=== PATIENT | male | born 1960 | race Caucasian/White ===

== ENCOUNTER 2016-10-10 15:12 | Inpatient (IN) | payer OTHER ==
[~2016-10-10] VITALS: Ht 170.2 cm; Wt 124.7 kg
--- NOTE | ~2016-10-10 | EKG ---
[address] [address] ELECTROCARDIOGRAM REPORT Name: DREAD HENDERSON Room #: 442- ADM IN M.R.#: [id number] Admission: 10/10/16 Attend Phys: Jefry Kong MD Discharge: Date of : 56 Report #: [id number] THIS REPORT FOR: //name// [facility] Test Date: 2016-10-10 Test Time: 17:50:10 Pat Name: DREAD HENDERSON Department: Room: 442 P Gender: M Child And Adolescent Psychiatrist: Danna ESCALONA : 1960 Requested By: Jefry Kong Order Number: [id number] MD: Akil Arango Measurements Intervals [place] Rate: 59 P: -24 ND: 141 QRS: 64 QRSD: 109 T: 98 QT: 423 QTc: 419 Interpretive Statements Sinus rhythm Low voltage, precordial leads Nonspecific T abnormalities, lateral leads No previous ECG available for comparison Electronically Signed On 10-11-2016 11:04:28 CDT by Akil Arango [email or web address] <ELECTRONICALLY SIGNED> By: Akil Arango MD 10/11/16 1104 1750 1750 Akil Arango MD /CAMMIE
--- NOTE | ~2016-10-10 | HC ---
[facility] [place] [address] CONSULTATION Name: DREAD HENDERSON Room #: 442-P [facility] IN .R.#: [id number] Admission: 10/10/16 Attend Phys: Jefry Kong MD Discharge: 10/11/16 Date of : 56 Report #: [id number] THIS REPORT FOR: //name// CC: Jefry Kong MD DATE OF CONSULTATION: 10/11/2016. PATIENT IDENTIFICATION: A 55-year-old male was referred by Dr. Jefry Kong for evaluation of hyperkalemia and renal insufficiency in the setting of severe coronary artery disease, HISTORY OF PRESENT ILLNESS: The patient developed diarrhea illness several weeks ago. He was seen and evaluated by Dr. Kong earlier this week in the office. Blood work obtained at that time, subsequently returned with a potassium of 6.5 and a creatinine of 2.5. The patient was a advised to present to [facility] for hospitalization and further evaluation. Dietary history reveals the patient has been consuming significant quantities of salt substitute in effort to limit his sodium intake. PAST MEDICAL HISTORY: Remarkable for previous myocardial infarction in 2006 with cardiac arrest and subsequent coronary artery bypass surgery. The patient has subsequently undergone placement of an automatic internal cardioverter-defibrillator. PAST MEDICAL HISTORY: Otherwise remarkable for cardiomyopathy, dyslipidemia, gastroesophageal reflux disease and pancreatitis. He has a history of nephrolithiasis. He has undergone bilateral inguinal hernia repair. ALLERGIES: REPORTED TO PENICILLIN. MEDICATIONS ON ADMISSION: Include furosemide, spironolactone, Edarbi, aspirin, niacin, Bystolic and Livalo. PERSONAL AND SOCIAL HISTORY: The patient lives with his . He has no children. He does not have any history of substance abuse. He does smoke approximately 1.5 pack of cigarettes daily. FAMILY HISTORY: Remarkable for chronic kidney disease in his mother. There is no history of diabetes mellitus. REVIEW OF SYSTEMS: Remarkable for the absence of peripheral edema. He denies shortness of breath, productive cough, chest pain, palpitations, nausea, vomiting, diarrhea or constipation. PHYSICAL EXAMINATION: GENERAL: At the time of consultation reveals a well-developed, well-nourished [address] [address] CONSULTATION Name: DREAD HENDERSON Room #: 442-P [facility] IN M.R.#: [id number] Admission: 10/10/16 Attend Phys: Jefry Kong MD Discharge: 10/11/16 Date of : 56 Report #: [id number] male appearing his stated age, in no acute distress. VITAL SIGNS: Blood pressure 111/53, temperature 36.4, pulse , respirations 18. SKIN: Warm and dry without rash or erythema. There is no gross clubbing, cyanosis, edema or adenopathy. HEENT: The head is normocephalic and atraumatic. Sclerae are white and conjunctivae are not injected. The pharynx is benign. NECK: Supple. LUNGS: Rizvi are grossly clear to percussion and auscultation. CARDIOVASCULAR: Reveals a regular rate and rhythm without rub. ABDOMEN: Soft and nontender, without palpable mass or organomegaly. NEUROLOGIC: Reveals the patient to be alert and cooperative with a nonfocal exam. DIAGNOSTIC DATA: Available at the time of consultation include sodium 137, potassium 4.8, chloride 105, CO2 19, BUN 59, creatinine 2.4, glucose 107. White blood cell count 7300, hemoglobin 11.6, hematocrit 34.5, platelet count 169,000. ASSESSMENT: 1. Hyperkalemia of multifactorial etiology including and chronic kidney disease, spironolactone, Edarbi, salt substitute. I had a lengthy discussion with the patient today regarding dietary management and avoidance of high potassium foods and salt substitute. He understands this. 2. Severe coronary artery disease status post previous coronary artery bypass surgery. 3. History of sudden , status post AICD. 4. Exogenous obesity. May wish to give consideration for sleep study. 5. Dyslipidemia. 6. Ongoing tobacco abuse. PLAN: I have counseled the patient regarding dietary issues. I have discussed the case in detail with Dr. Kong. I feel it will be safe to reinstitute his Edarbi following approximately 1 week of adjusting his diet to avoid high potassium foods. I would recommend further that his laboratory studies to be checked approximately one week after being back on Edarbi to evaluate his potassium status. Further possible reintroduction of spironolactone will depend upon his laboratory studies at that time. Many thanks for this consultation. Please see orders. <ELECTRONICALLY SIGNED> By: Jaime Yen MD 10/14/16 1721 0542 [id number] Jaime Yen MD /nt
--- NOTE | ~2016-10-10 | HC ---
[facility] [place] [address] CONSULTATION Name: SANTIAGODREAD Dasha Room #: 442-P [facility] IN M.R.#: [id number] Admission: 10/10/16 Attend Phys: Jefry Kong MD Discharge: 10/11/16 Date of : 56 Report #: [id number] THIS REPORT FOR: //name// CC: Jefry Kong DATE OF SERVICE: 10/11/2016 REASON FOR CONSULTATION: Hyperkalemia and renal insufficiency in this patient with known severe atherosclerotic cardiovascular disease. HISTORY OF PRESENT ILLNESS: This 55-year-old male has a known history severe coronary artery disease. He is status post previous coronary artery bypass surgery and has suffered <ELECTRONICALLY SIGNED> By: Jaime Yen MD 10/14/16 1721 0535 [id number] Jaime Yen MD /nt
--- NOTE | ~2016-10-10 | HC ---
[facility] [place] [address] CONSULTATION Name: DREAD HENDERSON Room #: 442-P [facility] IN M.R.#: [id number] Admission: 10/10/16 Attend Phys: Jefry Kong MD Discharge: 10/11/16 Date of : 56 Report #: [id number] THIS REPORT FOR: //name// CC: Jefry Kong CARDIOLOGY CONSULTATION HISTORY OF PRESENT ILLNESS: The patient is a 55-year-old male, well known to myself, admitted by Dr. Kong for some worsening [id number]-[id number]-[id number] renal failure and incidental hyperkalemia. He had been followed this. He had been initiated on Edarbi 80 mg and Aldactone and had been doing well on the regimen, but on a repeat lab here by Dr. Kong was found to have potassium in the 6 range and worsening creatinine up to 2. This had worsened on the next draw and subsequently, brought in, although he is relatively asymptomatic. The EKG is sinus rhythm with essentially normal tracing sinus cecy. He does have an ICD in place for an ischemic cardiomyopathy, which has actually been 40% to 45% range lately. Bypass was in 2008 with the JEAN to LAD and a 40% lesion in the LAD. Early catheterization was in August of 2014 and the bypass in 2008. SVG to the OM and PDA were intact. This was atretic to the PDA, but patent to the OM. SVG to the OM was occluded and the EF was 40% range. MEDICATIONS: Have been baby aspirin, Livalo 4 mg, simvastatin and he can take Edarbi 80, Lasix 40, fish oil, omeprazole, Bystolic 10, Niaspan, Ranexa 1000 b.i.d. and Aldactone 25. PAST MEDICAL HISTORY: Positive for the coronary artery disease with VF arrest, LAD stent in 2006, subsequent bypass in 2008, catheterization in 2014, ICD placement in 2006, [place] lead replacement in 2012, COPD, hypertension, obesity and DJD. FAMILY HISTORY: Strongly positive for premature coronary disease. SOCIAL HISTORY: He is . Former tobacco user. No drugs. Minimal alcohol. 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 Two cups of coffee a day. , with children. ALLERGIES: PENICILLIN. REVIEW OF SYSTEMS: Negative, except for some nocturia. PHYSICAL EXAMINATION: VITAL SIGNS: Blood pressure 100/60, pulse is 60s and regular. GENERAL: He is in no distress. HEENT: Eyes reveal xanthelasmas. Pharynx is clear. NECK: Shows preserved upstrokes, without JVD or bruits. LUNGS: Clear. CARDIAC EXAMINATION: Regular rate and rhythm, S1, S2. No murmur or gallop. ABDOMEN: Obese, nontender. [facility] [address] [place] [address] CONSULTATION Name: DREAD HENDERSON Dasha Room #: 442-P [facility] IN M.R.#: [id number] Admission: 10/10/16 Attend Phys: Jefry Kong MD Discharge: 10/11/16 Date of : 56 Report #: [id number] EXTREMITIES: Reveal trace of nonpitting edema. NEUROLOGIC: Nonfocal. SKIN: Warm and dry, without xanthoma or ulcer. MUSCULOSKELETAL: Some mild arthritic changes. ASSESSMENT: 1. Hyperkalemia, probable iatrogenic secondary to ARB and Aldactone. 2. Relative hypotension, possibly secondary to current medications. 3. Coronary artery disease with coronary artery bypass graft in 2008, cath in 2015, patent. 4. Moderate ischemic cardiomyopathy of 40%. 5. Implantable cardioverter defibrillator placement. 6. Degenerative joint disease. 7. Hypercholesterolemia. 8. Stable angina. RECOMMENDATIONS AND PLAN: Cardiovascular status is stable. I suspect possibly the higher dose of the ARB and the Aldactone combination with some relative hypotension lead to some hypoperfusion and some renal insufficiency with worsening hyperkalemia. Also, the patient's diet is high in citrus as he had banana, orange and [place]ussel sprouts all in the last 12 hours, which are some of the highest foods for potassium. Currently on IV fluids and Lasix. Potassium down here to 5.8. EKG is not significant. Renal ____ in here, but I suspect this, because of his ischemic cardiomyopathy, would be able to at least continue on some lower dose SCOUT or ARB, holding the Aldactone probably indefinitely, then continuing with this current regimen. He was anxious for discharge. I certainly need to watch him at least overnight here and confirm that renal function and potassium is heading downward. I would not make any changes in his regimen at this time. The exception as noted above, holding ARB and Aldactone. CV status is stable. <ELECTRONICALLY SIGNED> By: Partha Cueavs MD, [facility] 10/13/16 0908 1839 [id number] Partha Cuevas MD, FACC /nt
--- NOTE | ~2016-10-10 | H ---
[facility] [place] [address] HISTORY AND PHYSICAL Name: DREAD HENDERSON Room #: 442-P [facility] IN M.R.#: [id number] Admission: 10/10/16 Attend Phys: Jefry Kong MD Discharge: 10/11/16 Date of : 56 Report #: [id number] THIS REPORT FOR: //name// CC: Partha Cuevas MD [facility] Jefry Yen MD DATE OF SERVICE: 10/10/2016 DATE OF ADMISSION: 10/10/2016. CHIEF COMPLAINT: Diarrhea. HISTORY OF PRESENT ILLNESS: The patient is a 55-year-old male who presented at my office on Thursday this week with at least a 4-week history of loose stools, which he describes as a semi-formed diarrhea without blood. In fact, the stools have been light colored of late. He also reports that this happened during a time period when he was attempting to lose a significant amount of weight prior to his upcoming cardiac stress test this summer. He normally follows with Dr. Partha Cuevas for his cardiac needs. At the time of our visit on Thursday, I recommended he discontinue at present the niacin and in addition to ordering some lab tests, I have ordered a CT scan of the abdomen and pelvis because of the significant weight loss in excess of 25 pounds during this illness. PAST MEDICAL HISTORY: Very extensive, includes hypertension, hyperlipidemia and coronary artery disease. He had a cardiac arrest with myocardial infarction in 2006. This led to subsequent coronary artery bypass surgery at [facility]. He also has a history of one admission in the year since then for congestive heart failure. He was found to have significant cardiomyopathy, had an implantable defibrillator placed. To my knowledge, he has never been defibrillated, but one of the leads broke and had to be replaced. The patient has had two generators replaced since the original placement of the device. He also has a history of gastroesophageal reflux disease and obesity. He had pancreatitis in 2008. He has had kidney stones in the past. He has had bilateral inguinal hernia repair surgeries. ALLERGIES: PENICILLIN. MEDICATIONS: List as of last Thursday include Lasix, spironolactone, Edarbi, aspirin, niacin, Bystolic and Livalo. 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 He lives with his girlfriend of over 10 years, Karthik. He has no children. He smokes less than half a pack per day. [facility] [address] [place] [address] HISTORY AND PHYSICAL Name: DREAD HENDERSON Room #: 442-P [facility] IN .R.#: [id number] Admission: 10/10/16 Attend Phys: Jefry Kong MD Discharge: 10/11/16 Date of : 56 Report #: [id number] FAMILY HISTORY: Significant for dementia and chronic kidney disease in his mother. His father had coronary artery disease. He lived into his 90s and his mother into her 80s. He is from a rather large family; I believe they are close to 10 children. REVIEW OF SYSTEMS: The patient denies any problems with headaches, changes in vision, changes in hearing, difficulty swallowing. He denies neck pain or neck soreness with decreased range of motion there. He denies shortness of breath or chest pain. He denies abdominal pain except a slight intermittent pain in the epigastric area lately. No flank pain or as I said no back pain. Extremities are without pain or other problems. He denies any dizziness or recent trauma or falls. PHYSICAL EXAMINATION: VITAL SIGNS: On arrival at the hospital today showed a temperature of 98.5, pulse of 61, respirations of 24 per minute and blood pressure of 107/63, his height is reported at 5 feet 7 inches and weight of 275 pounds. GENERAL: The patient is an obese white male in no distress. HEENT: Extraocular muscles are intact. Oropharynx is moist and pink. No lesions, no exudates. NECK: Supple. No adenopathy, thyromegaly, JVD, mass or significant bruit. LUNGS: Are fairly clear bilaterally. CARDIOVASCULAR: Reveals a distant, but regular rhythm with occasional extra systole. There is S4 gallop noted. ABDOMEN: Soft, bowel sounds present, no hepatosplenomegaly or masses. EXTREMITIES: Without cyanosis, clubbing or peripheral edema. Peripheral pulses easily palpated, but weak in all 4 distal extremities. MENTAL STATUS: The patient is alert. He is fully oriented to person, place and time. There are no hallucinations, no delusions. Affect is full, but somewhat having to come to the hospital. There are no focal neurologic deficits. NEUROLOGIC: Cranial nerves (II-XII only), cranial cerebellar, deep tendon reflexes, sensory and motor examinations today. LABORATORY DATA: Performed yesterday revealed that the potassium level was 6.2 and creatinine was 2.3. I contacted the patient when I found out this morning and we repeated the labs. In the interim, while reviewing his diet with him, among the fluids that he had eaten included oranges, bananas and [place] sprouts, all three known to be abundant in potassium. A stat repeat chemistry showed a potassium of 6.5 and a creatinine of 2.5. I also discussed the case by phone with his assistant warehouse manager, Dr. Cuevas. ASSESSMENT AND PLAN: 1. Hyperkalemia - at this level the potassium places this particular patient at high risk for cardiac events and particularly arrhythmias. I strongly advised him to come to the hospital immediately, which he did and he will be monitored closely for any evidence of arrhythmia as well. We will attempt to lower his [facility] [address] [place] [address] HISTORY AND PHYSICAL Name: DREAD HENDERSON Dasha Room #: 442-P [facility] IN [facility].#: [id number] Admission: 10/10/16 Attend Phys: Jefry Kong MD Discharge: 10/11/16 Date of : 56 Report #: [id number] total body potassium. He is placed on acute 8 hour doses of intravenous furosemide on arrival and I have asked the remnants cutter to meet with him regarding a low potassium diet. I will also be checking, in addition to serial blood chemistries, his hemoglobin A1c to see if he has developed a case of diabetes. I will also ask for the input of a manager appointment to see digital media sales consultant orders and his assistant warehouse manager. The patient and his significant other are aware of the seriousness of the diagnosis and will be monitoring closely until his potassium is closer to a normal level. 2. Acute kidney injury. In reviewing the chemistries on the hospital computer, the patient had a chemistry last performed here in August of 2014. At that time, his creatinine was 1.2, the month before was 1.0 and 0.9 and 2 years before that it was 0.9 and 4 years before that it was 0.7. We will ultrasound the kidneys to make sure there is no other reason for an acute decline in his function and will get rid of the Edarbi and spironolactone immediately. If he responds appropriately to the current interventions, we will consider restarting Edarbi at a lower dose, but not the spironolactone. I will, of course, defer to the recommendations of my renal and cardiovascular medicine colleagues. 3. Coronary artery disease with history of congestive heart failure as outlined above. We will get a chest x-ray to look for any effusions or pulmonary vascular congestion, but clinical evaluation did not support that. 4. Obesity - will continue weight reduction program with respect being drawn to the patient's intake of potassium. He also informed me during our review that he has been using a salt substitute that is presumably high in potassium as well. (I advised him to use Mrs. Pruitt only). 5. Hyperlipidemia. Continue Livalo after discharge. We will hold on the niacin for now because of the diarrhea. I am not sure if the diarrhea is a physiologic reaction by the body and attempt to remove excess potassium and will discuss this with the Nephrology digital media sales consultant. 6. History of pancreatitis in 2008 - will pursue the CT scan of his abdomen with oral contrast only as arranged previously. 7. Smoker. I have advised the patient to quit smoking and will follow his progress during this hospital stay. I have already ordered intravenous fluids with reduced electrolytes and serial diuretics and if he does not respond quickly, will consider using Kayexalate, but I am avoiding it because of the sodium load. <ELECTRONICALLY SIGNED> By: Jefry Kong MD 10/13/16 1209 1728 2249 Jefry Kong MD /nt
[~2016-10-10 15:12] MED LIST: ALDACTONE25 MG PO; ALTACE10 M1 PO; ALTACE10 MG PO; ASPIRIN325 PO; BYSTOLIC 5 MG5 M1 PO; CARVEDILOL25 MG PO; CEFTIN PO; EDARBI80 MG PO; ERYTHROCIN STE500 MG PO; FISH OIL 1,2001 EAC4 PO; LASIX 40 MG TAB40 M2 PO; NIASPAN 500 MG500 M1 PO; PRILOSEC 20 MG20 MG PO
[2016-10-10 15:45] VITALS: BP 107/63
[2016-10-10 15:50] VITALS: BP 107/63
[2016-10-10 17:36] LABS: HEMATOCRIT 34.5 % (42.0-52.0); HEMOGLOBIN 11.6 gm/dL (14.0-18.0); MCH 32.4 pg (26.0-34.0); MCHC 33.5 g/dL (28.0-37.0); MCV 96.7 fL (80.0-100.0); RBC 3.57 mil/uL (4.50-6.00); RDW 13.7 % (10.5-14.5); WBC 7.3 thou/uL (4.0-11.0)
[2016-10-10 17:49] LABS: ALBUMIN 3.7 g/dL (3.4-5.0); CALCIUM 9.1 mg/dL (8.5-10.1); CREATININE 2.5 mg/dL (0.7-1.3); POTASSIUM 5.8 mmol/L (3.5-5.1); TOTAL BILIRUBIN 0.3 mg/dL (<0.1-1.0); TOTAL PROTEIN 7.4 g/dL (6.4-8.2)
[2016-10-10 19:56] VITALS: BP 102/55
[2016-10-11 03:35] LABS: ALBUMIN 3.5 g/dL (3.4-5.0); CALCIUM 8.2 mg/dL (8.5-10.1); CREATININE 2.4 mg/dL (0.7-1.3); PHOSPHORUS 4.9 mg/dL (2.5-4.9); POTASSIUM 4.8 mmol/L (3.5-5.1)
[2016-10-11 03:40] LABS: MAGNESIUM 1.7 mg/dL (1.8-2.4)
[2016-10-11 07:09] VITALS: BP 104/57
[2016-10-11 07:31] VITALS: BP 95/43
[2016-10-11 09:15] VITALS: BP 111/53
[2016-10-11 11:12] VITALS: BP 111/53
[2016-10-12 00:08] LABS: GLYCOHEMOGLOBIN (HGB A1C) 5.1 % (4.8-5.6)
== END 2016-10-11 11:47 | disposition home or self-care (01) | DRG 683 ==
LOC: 4S 15:12
PROVIDERS: Internal Medicine; Internal Medicine Nephrology
DX: N17.9 Acute kidney failure, unspecified (principal); I13.0 Hypertensive heart and chronic kidney disease with heart failure and stage 1 through stage 4 chronic kidney disease, or unspecified chronic kidney disease; I50.20 Unspecified systolic (congestive) heart failure; Z68.41 Body mass index [BMI] 40.0-44.9, adult; E87.5 Hyperkalemia; J44.9 Chronic obstructive pulmonary disease, unspecified; M19.90 Unspecified osteoarthritis, unspecified site; I25.5 Ischemic cardiomyopathy; E78.00 Pure hypercholesterolemia, unspecified; K21.9 Gastro-esophageal reflux disease without esophagitis; R63.4 Abnormal weight loss; R19.7 Diarrhea, unspecified; E66.09 Other obesity due to excess calories; N18.9 Chronic kidney disease, unspecified; I25.118 Atherosclerotic heart disease of native coronary artery with other forms of angina pectoris; E78.5 Hyperlipidemia, unspecified; Z79.82 Long term (current) use of aspirin; Z88.1 Allergy status to other antibiotic agents; Z84.1 Family history of disorders of kidney and ureter; Z88.8 Allergy status to other drugs, medicaments and biological substances; Z95.5 Presence of coronary angioplasty implant and graft; Z95.1 Presence of aortocoronary bypass graft; Z95.810 Presence of automatic (implantable) cardiac defibrillator; Z88.0 Allergy status to penicillin; Z87.891 Personal history of nicotine dependence; Z82.49 Family history of ischemic heart disease and other diseases of the circulatory system; I25.2 Old myocardial infarction; Z86.74 Personal history of sudden cardiac arrest; Z81.8 Family history of other mental and behavioral disorders
CPT/HCPCS: 10100